=== PATIENT | male | born 1990 | race Two or more races ===

== ENCOUNTER 2021-10-11 16:14 | Emergency (ER) | payer MEDICAID ==
[~2021-10-11] VITALS: Ht 172.7 cm; Wt 81.6 kg
[2021-10-11 17:00] VITALS: BP 151/84
--- NOTE | 2021-10-11 17:07 | NUR ---
TRIAGED,BACK TO [facility] TO WAIT FOR ER BED
[2021-10-11] MEDS ORDERED: LORAZEPAM 1 MG TABLET PO ONE (17:30)
[2021-10-11] MEDS ORDERED: LORAZEPAM 0.5 MG TABLET ONE (17:30)
--- NOTE | 2021-10-11 17:35 | NUR ---
Patient discharged to home in stable condition. Written and verbal after care instructions given. Patient verbalizes understanding of instruction.
== END 2021-10-11 17:35 | disposition home or self-care (01) ==
LOC: ER 16:33
DX: F41.0 Panic disorder [episodic paroxysmal anxiety] (principal); Z98.890 Other specified postprocedural states

== ENCOUNTER 2022-02-25 18:32 | Emergency (ER) | payer MEDICAID, OTHER ==
[~2022-02-25] VITALS: Ht 172.7 cm; Wt 90.7 kg
[2022-02-25 21:09] VITALS: BP 126/76
[2022-02-25] MEDS ORDERED: RISP1TAB97 PO (21:20)
--- NOTE | 2022-02-25 21:27 | NUR ---
Patient discharged to home in stable condition. Written and verbal after care instructions given. Patient verbalizes understanding of instruction.
== END 2022-02-25 22:09 | disposition home or self-care (01) ==
LOC: ER 18:32
DX: Z76.0 Encounter for issue of repeat prescription (principal); B34.9 Viral infection, unspecified; F20.9 Schizophrenia, unspecified; Z79.899 Other long term (current) drug therapy

== ENCOUNTER 2022-04-03 16:02 | Emergency (ER) | payer OTHER ==
[~2022-04-03] VITALS: Ht 172.7 cm; Wt 90.7 kg
[~2022-04-03 16:02] MED LIST: RISP1TAB97 PO
--- NOTE | 2022-04-03 16:43 | NUR ---
EKG DONE,NOTED BY DR ANDRADE
[2022-04-03] MEDS ORDERED: IBUPROFEN 600 MG TABLET ONE (18:01)
[2022-04-03] MEDS: IBUPROFEN 600 MG TABLET PO ONE (18:08)
--- NOTE | 2022-04-03 19:24 | NUR ---
Patient discharged to home in stable condition. Written and verbal after care instructions given. Patient verbalizes understanding of instruction.
[2022-04-03 19:25] VITALS: BP 129/80
== END 2022-04-03 19:32 | disposition home or self-care (01) ==
LOC: ER 16:03
DX: R07.2 Precordial pain (principal); Z79.899 Other long term (current) drug therapy; Z98.890 Other specified postprocedural states
CPT/HCPCS: 71045-TC

== ENCOUNTER 2023-05-02 19:49 | Emergency (ER) | payer OTHER ==
[~2023-05-02] VITALS: Ht 172.7 cm; Wt 103.4 kg
[2023-05-02 20:35] VITALS: BP 137/81; TEMP 98.2; O2SAT 98
[2023-05-02] MEDS ORDERED: CIPR7.5D9 LEFT EAR (20:57)
== END 2023-05-02 21:21 | disposition home or self-care (01) ==
LOC: ER 19:54
DX: H60.92 Unspecified otitis externa, left ear (principal)